=== PATIENT | male | born 1990 | race Caucasian/White ===

== ENCOUNTER → 2016-09-11 | Outpatient (CLI) | payer OTHER ==
--- NOTE | 2016-09-12 10:19 | XR ---
Left foot HISTORY: Swelling and pain 3 views of the left foot COMPARISON STUDY: There is soft tissue swelling present. Bone mineralization, joint spaces and alignment are maintained . No fracture or dislocation evident. IMPRESSION: Soft tissue swelling
== END ==
LOC: RADXRYALE 13:45
PROVIDERS: ATTEND Internal Medicine
DX: M79.89 Other specified soft tissue disorders (principal)

== ENCOUNTER 2024-02-04 17:41 | Inpatient (IN) | payer MEDICAID, OTHER ==
--- NOTE | 2024-02-04 18:10 | ED ---
Psych HPI - General Source: patient, RN notes reviewed Mode of arrival: ambulatory <Lashae Ferguson - Last Filed: 02/04/24 18:08> - General Source: patient, RN notes reviewed Mode of arrival: ambulatory Limitations: no limitations <Archie Brown - Last Filed: 02/05/24 08:20> - General Chief Complaint: Psychiatric Symptoms Stated Complaint: MENTAL HEALTH EVAL Time Seen by Provider: 02/04/24 18:09 - History of Present Illness Initial Comments: Quick note: 33-year-old male presented to the ER for mental health evaluation. Patient is complaining of SI with a plan. He states he planned on to take pills this evening. He denies any homicidal or hallucinations. No alcohol or other drugs. (Lashae Ferguson) Patient is a 33-year-old male presenting to the emergency department with concern for mental health evaluation. Patient states he has difficulty with relationship problems right now. Patient did have some depression and suicidal thoughts a month ago that were mild and resolved. Patient states symptoms worsened today. Decreased appetite today. Patient is not sleeping well however that is chronic. No homicidal thoughts. No hallucinations. No alcohol today. (Archie Brown) - Related Data Home Medications Medication Instructions Recorded Confirmed No Known Home Medications 02/05/24 02/05/24 Allergies Allergy/AdvReac Type Severity Reaction Status Date / Time No Known Allergies Allergy Verified 02/05/24 01:38 Review of Systems ROS Other: All systems not noted in ROS Statement are negative. <Lashae Ferguson - Last Filed: 02/04/24 18:08> ROS Other: All systems not noted in ROS Statement are negative. Constitutional: Denies: fever Eyes: Denies: eye pain ENT: Denies: ear pain Respiratory: Denies: cough, dyspnea Cardiovascular: Denies: chest pain Endocrine: Denies: fatigue Gastrointestinal: Denies: abdominal pain Neurological: Denies: headache Psychiatric: Reports: as per HPI, depression, suicidal thoughts <Archie Brown - Last Filed: 02/05/24 08:20> ROS Statement: Those systems with pertinent positive or pertinent negative responses have been documented in the HPI. Past Medical History Past Medical History: No Reported History History of Any Multi-Drug Resistant Organisms: None Reported Past Surgical History: No Surgical Hx Reported Past Psychological History: Depression Smoking Status: Never smoker Past Alcohol Use History: None Reported Past Drug Use History: None Reported <Lashae Ferguson - Last Filed: 02/04/24 18:08> General Exam Limitations: no limitations <Lashae Ferguson - Last Filed: 02/04/24 18:08> Limitations: no limitations General appearance: alert, in no apparent distress Head exam: Present: normocephalic Eye exam: Present: normal appearance Neck exam: Present: normal inspection Respiratory exam: Present: normal lung sounds bilaterally Cardiovascular Exam: Present: regular rate, normal rhythm GI/Abdominal exam: Present: soft. Absent: tenderness Extremities exam: Present: normal inspection Neurological exam: Present: alert Psychiatric exam: Present: depressed Skin exam: Present: normal color <Archie Brown - Last Filed: 02/05/24 08:20> - General Exam Comments Initial Comments: Visual Physical Exam Vital signs reviewed General: Well-appearing, nontoxic, no acute distress. Anxious and tearful on exam Head: Normocephalic, atraumatic Eyes: PERRLA, EOMI ENT: Airway patent Chest: Nonlabored breathing Skin: No visual rash, normal skin tone Neuro: Alert and oriented 3 Musculoskeletal: No gross abnormalities (Lashae Ferguson) Course Vital Signs 02/04/24 02/04/24 02/04/24 17:52 19:52 20:37 Temperature 98.8 F Pulse Rate 64 86 84 Respiratory 16 18 18 Rate Blood Pressure 179/128 166/116 176/133 O2 Sat by Pulse 98 99 Oximetry 02/04/24 02/04/24 21:55 22:19 Temperature Pulse Rate 80 105 H Respiratory 18 20 Rate Blood Pressure 163/108 153/112 O2 Sat by Pulse 100 100 Oximetry Medical Decision Making <Lashae Ferguson - Last Filed: 02/04/24 18:08> - Lab Data Result diagrams: 02/04/24 18:26 02/04/24 18:26 <Archie Brown - Last Filed: 02/05/24 08:20> - Medical Decision Making I performed the quick note portion of this chart. Electronically signed by Lashae Ferguson PA-C (Lashae Ferguson) Was pt. sent in by a medical professional or institution (PATRICIA Hyman, DIRECTOR OF HOUSING, urgent care, hospital, or detention...) When possible be specific @ -No Did you speak to anyone other than the patient for history (EMS, parent, family, police, friend...)? What history was obtained from this source @ -Patient is brought in by 2 other gentleman that agree with patient's history Did you review nursing and triage notes (agree or disagree)? Why? @ -I reviewed and agree with nursing and triage notes Were old charts reviewed (outside hosp., previous admission, EMS record, old EKG, old radiological studies, urgent care reports/EKG's, detention records)? Report findings @ -No old charts were reviewed Differential Diagnosis (chest pain, altered mental status, abdominal pain women, abdominal pain men, vaginal bleeding, weakness, fever, dyspnea, syncope, headache, dizziness, GI bleed, back pain, seizure, CVA, palpatations, mental health, musculoskeletal)? @ -Differential Mental Health Depression, anxiety, bipolar, psychosis, schizophrenia, borderline personality, situational depression, adjustment disorder, behavioral disorder, brain tumor, malingering, substance abuse, encephalopathy, medication reaction, dementia, hypothyroidism, degenerative neurologic disorder, lupus.... This is not meant to be all-inclusive list EKG interpreted by me (3pts min.). @ -As above X-rays interpreted by me (1pt min.). @ -None done CT interpreted by me (1pt min.). @ -None done U/S interpreted by me (1pt. min.). @ -None done What testing was considered but not performed or refused? (CT, X-rays, U/S, labs)? Why? @ -None What meds were considered but not given or refused? Why? @ -None Did you discuss the management of the patient with other professionals (professionals i.e. , PA, DIRECTOR OF HOUSING, lab, RT, psych nurse, social and human services assistant, embryology professor, teacher, armoured corps officer, senior case manager)? Give summary @ -Mental health worker to assess for possible admission versus follow-up Was smoking cessation discussed for >3mins.? @ -No Was critical care preformed (if so, how long)? @ -No Were there social determinants of health that impacted care today? How? (Homelessness, low income, unemployed, alcoholism, drug addiction, transportation, low edu. Level, literacy, decrease access to med. care, senior care, rehab)? @ -No Was there de-escalation of care discussed even if they declined (Discuss DNR or withdrawal of care, Hospice)? DNR status @ -No What co-morbidities impacted this encounter? (DM, HTN, Smoking, COPD, CAD, Ca ncer, CVA, ARF, Chemo, Hep., AIDS, mental health diagnosis, sleep apnea, morbid obesity)? @ -None Was patient admitted / discharged? Hospital course, mention meds given and route, prescriptions, significant lab abnormalities, going to OR and other pertinent info. @ -Patient presents with depression and some suicidal thoughts. Patient seen by mental health worker. Patient to be admitted for psychiatric care Undiagnosed new problem with uncertain prognosis? @ -No Drug Therapy requiring intensive monitoring for toxicity (Heparin, Nitro, Insulin, Cardizem)? @ -No Were any procedures done? @ -No Diagnosis/symptom? @ -Depression Acute, or Chronic, or Acute on Chronic? @ -Acute Uncomplicated (without systemic symptoms) or Complicated (systemic symptoms)? @ -Default Side effects of treatment? @ -No Exacerbation, Progression, or Severe Exacerbation? @ -No Poses a threat to life or bodily function? How? (Chest pain, USA, OR, pneumonia, PE, COPD, DKA, ARF, appy, cholecystitis, CVA, Diverticulitis, Homicidal, Suicidal, threat to staff... and all critical care pts) @ -No (Archie Brown) - Lab Data Lab Results 02/04/24 02/04/24 02/04/24 Range/Units 18:26 18:26 23:20 WBC 10.8 H (3.8-10.6) k/uL RBC 5.64 (4.30-5.90) m/uL Hgb 17.6 H (13.0-17.5) gm/dL Hct 52.8 (39.0-53.0) % MCV 93.6 (80.0-100.0) fL MCH 31.2 (25.0-35.0) pg MCHC 33.4 (31.0-37.0) g/dL RDW 13.2 (11.5-15.5) % Plt Count 389 (150-450) k/uL MPV 7.1 Neutrophils % 70 % Lymphocytes % 22 % Monocytes % 5 % Eosinophils % 1 % Basophils % 0 % Neutrophils # 7.6 (1.3-7.7) k/uL Lymphocytes # 2.4 (1.0-4.8) k/uL Monocytes # 0.5 (0-1.0) k/uL Eosinophils # 0.2 (0-0.7) k/uL Basophils # 0.0 (0-0.2) k/uL Sodium 139 (137-145) mmol/L Potassium 4.3 (3.5-5.1) mmol/L Chloride 103 (98-107) mmol/L Carbon Dioxide 24 (22-30) mmol/L Anion Gap 12 mmol/L BUN 19 (9-20) mg/dL Creatinine 1.60 H (0.66-1.25) mg/dL Est GFR (CKD-EPI)AfAm 65 (>60 ml/min/1.73 sqM) Est GFR (CKD-EPI)NonAf 56 (>60 ml/min/1.73 sqM) Glucose 97 (74-99) mg/dL Calcium 9.8 (8.4-10.2) mg/dL Total Bilirubin 1.6 H (0.2-1.3) mg/dL AST 40 (17-59) U/L ALT 41 (4-49) U/L Alkaline Phosphatase 67 (38-126) U/L Total Protein 8.9 H (6.3-8.2) g/dL Albumin 5.1 H (3.5-5.0) g/dL Urine Color Urine Appearance (Clear) Urine pH (5.0-8.0) Ur Specific [place] (1.001-1.035) Urine Protein (Negative) Urine Glucose (UA) (Negative) Urine Ketones (Negative) Urine Blood (Negative) Urine Nitrite (Negative) Urine Bilirubin (Negative) Urine Urobilinogen (<2.0) mg/dL Ur Leukocyte Esterase (Negative) Salicylates <1.0 mg/dL Urine Opiates Screen (NotDetected) Ur Oxycodone Screen (NotDetected) Urine Methadone Screen (NotDetected) Acetaminophen <10.0 ug/mL Ur Barbiturates Screen (NotDetected) U Tricyclic Antidepress (NotDetected) Ur Phencyclidine Scrn (NotDetected) Ur Amphetamines Screen (NotDetected) U Methamphetamines Scrn (NotDetected) U Benzodiazepines Scrn (NotDetected) Urine Cocaine Screen (NotDetected) U Marijuana (THC) Screen (NotDetected) Serum Alcohol <10 mg/dL SARS-CoV-2 (PCR) Not Detected (Not Detectd) 02/05/24 02/05/24 Range/Units 00:30 00:34 WBC (3.8-10.6) k/uL RBC (4.30-5.90) m/uL Hgb (13.0-17.5) gm/dL Hct (39.0-53.0) % MCV (80.0-100.0) fL MCH (25.0-35.0) pg MCHC (31.0-37.0) g/dL RDW (11.5-15.5) % Plt Count (150-450) k/uL MPV Neutrophils % % Lymphocytes % % Monocytes % % Eosinophils % % Basophils % % Neutrophils # (1.3-7.7) k/uL Lymphocytes # (1.0-4.8) k/uL Monocytes # (0-1.0) k/uL Eosinophils # (0-0.7) k/uL Basophils # (0-0.2) k/uL Sodium (137-145) mmol/L Potassium (3.5-5.1) mmol/L Chloride (98-107) mmol/L Carbon Dioxide (22-30) mmol/L Anion Gap mmol/L BUN (9-20) mg/dL Creatinine (0.66-1.25) mg/dL Est GFR (CKD-EPI)AfAm (>60 ml/min/1.73 sqM) Est GFR (CKD-EPI)NonAf (>60 ml/min/1.73 sqM) Glucose (74-99) mg/dL Calcium (8.4-10.2) mg/dL Total Bilirubin (0.2-1.3) mg/dL AST (17-59) U/L ALT (4-49) U/L Alkaline Phosphatase (38-126) U/L Total Protein (6.3-8.2) g/dL Albumin (3.5-5.0) g/dL Urine Color Light Yellow Urine Appearance Clear (Clear) Urine pH 5.5 (5.0-8.0) Ur Specific [place] 1.019 (1.001-1.035) Urine Protein Trace H (Negative) Urine Glucose (UA) Negative (Negative) Urine Ketones Negative (Negative) Urine Blood Negative (Negative) Urine Nitrite Negative (Negative) Urine Bilirubin Negative (Negative) Urine Urobilinogen <2.0 (<2.0) mg/dL Ur Leukocyte Esterase Negative (Negative) Salicylates mg/dL Urine Opiates Screen Not Detected (NotDetected) Ur Oxycodone Screen Not Detected (NotDetected) Urine Methadone Screen Not Detected (NotDetected) Acetaminophen ug/mL Ur Barbiturates Screen Not Detected (NotDetected) U Tricyclic Antidepress Not Detected (NotDetected) Ur Phencyclidine Scrn Not Detected (NotDetected) Ur Amphetamines Screen Not Detected (NotDetected) U Methamphetamines Scrn Not Detected (NotDetected) U Benzodiazepines Scrn Not Detected (NotDetected) Urine Cocaine Screen Not Detected (NotDetected) U Marijuana (THC) Screen Not Detected (NotDetected) Serum Alcohol mg/dL SARS-CoV-2 (PCR) (Not Detectd) Disposition <Lashae Ferguson - Last Filed: 02/04/24 18:08> Is patient prescribed a controlled substance at d/c from ED?: No <Archie Brown - Last Filed: 02/05/24 08:20> Clinical Impression: Depression Disposition: TRANSFER TO PSYCH HOSP/UNIT Condition: Good
[2024-02-04 18:39] LABS: Basophils % (A) 0 %; Eosinophils # (A) 0.2 k/uL (0-0.7); Eosinophils % (A) 1 %; HCT 52.8 % (39.0-53.0); HGB 17.6 gm/dL (13.0-17.5); Lymphocytes # (A) 2.4 k/uL (1.0-4.8); Lymphocytes % (A) 22 %; MCH 31.2 pg (25.0-35.0); MCHC 33.4 g/dL (31.0-37.0); MCV 93.6 fL (80.0-100.0); Mean Platelet Volume 7.1; Monocytes # (A) 0.5 k/uL (0-1.0); Monocytes % (A) 5 %; Neutrophils # (A) 7.6 k/uL (1.3-7.7); Neutrophils % (A) 70 %; Platelet Count 389 k/uL (150-450); RBC 5.64 m/uL (4.30-5.90); RDW 13.2 % (11.5-15.5); WBC 10.8 k/uL (3.8-10.6)
[2024-02-04 18:54] LABS: ALT 41 U/L (4-49); Acetaminophen <10.0 ug/mL; African American GFR (CKD) 65 (>60 ml/min/1.73 sqM); Albumin 5.1 g/dL (3.5-5.0); Alcohol <10 mg/dL; Anion Gap 12 mmol/L; Blood Urea Nitrogen 19 mg/dL (9-20); Calcium 9.8 mg/dL (8.4-10.2); Carbon Dioxide 24 mmol/L (22-30); Chloride 103 mmol/L (98-107); Glucose 97 mg/dL (74-99); Non-African American GFR(CKD) 56 (>60 ml/min/1.73 sqM); Salicylate <1.0 mg/dL; Sodium 139 mmol/L (137-145); Total Bilirubin 1.6 mg/dL (0.2-1.3); Total Protein 8.9 g/dL (6.3-8.2)
[2024-02-04 19:25] LABS: AST 40 U/L (17-59); Alkaline Phosphatase 67 U/L (38-126); Potassium 4.3 mmol/L (3.5-5.1)
[2024-02-04] MEDS: LORazepam 2 MG/ML INJ IM STA (20:05)
[2024-02-04] MEDS: hydrALAZINE HCL 20 MG/ML 1 ML VIAL IVP STA (20:54)
[2024-02-05] MEDS ORDERED: LORazepam 2 MG/ML INJ IM PRN (01:31)
[2024-02-05] MEDS ORDERED: MAG HYDROX/AL HYDROX/SIMETH 355 ML BOTTLE PO PRN (01:31)
[2024-02-05] MEDS ORDERED: MAGNESIUM HYDROXIDE 2,400 MG/30 ML CUP PO PRN (01:31)
[2024-02-05 01:33] LABS: Amphetamine Screen,Urine Not Detected (NotDetected); Barbiturate Screen,Urine Not Detected (NotDetected); Benzodiazepines Screen,Urine Not Detected (NotDetected); Cocaine Screen,Urine Not Detected (NotDetected); Methadone Screen, Urine Not Detected (NotDetected); Opiate Screen,Urine Not Detected (NotDetected); Oxycodone Screen, Urine Not Detected (NotDetected); Phencyclidine Screen,Urine Not Detected (NotDetected); Tricyclic Antidepressant,Urine Not Detected (NotDetected); Urn Cannabinoid Scrn Not Detected (NotDetected)
[2024-02-05] MEDS: IBUPROFEN 600 MG TAB PO PRN (02:46)
[2024-02-05] MEDS: ACETAMINOPHEN TAB 325 MG TAB PO PRN (02:46)
[2024-02-05 04:50] LABS: Appearance,Urine Clear (Clear); Bilirubin,Urine Negative (Negative); Blood,Urine Negative (Negative); Color,Urine Light Yellow; Glucose,Urine (UA) Negative (Negative); Ketones,Urine Negative (Negative); Leukocyte Esterase,Urine Negative (Negative); Nitrite,Urine Negative (Negative); PH, Urine 5.5 (5.0-8.0); Protein,Urine Trace (Negative); Specific Gravity,Urine 1.019 (1.001-1.035); Urobilinogen,Urine <2.0 mg/dL (<2.0)
[2024-02-05] MEDS: NICOTINE 14MG/24HR PATCH TRANSDERM SCH (09:33)
--- NOTE | 2024-02-05 11:55 | P.HP ---
Psychiatric H&P - . H&P Date: 02/05/24 History & Physical: Allergies Allergy/AdvReac Type Severity Reaction Status Date / Time No Known Allergies Allergy Verified 02/05/24 01:38 Vital Signs Temp 97.7 F 02/05/24 03:03 Pulse 86 02/05/24 03:03 Resp 15 02/05/24 03:03 BP 145/96 02/05/24 03:03 Pulse Ox 96 02/05/24 03:03 FiO2 Intake & Output 02/04/24 02/05/24 02/05/24 18:59 06:59 18:59 Weight 120.202 kg 122.47 kg Laboratory Last Values WBC 10.8 k/uL (3.8-10.6) H 02/04/24 18: RBC 5.64 m/uL (4.30-5.90) 02/04/24 18:26 Hgb 17.6 gm/dL (13.0-17.5) H 02/04/24 18:26 Hct 52.8 % (39.0-53.0) 02/04/24 18: MCV 93.6 fL (80.0-100.0) 02/04/24 18: MCH 31.2 pg (25.0-35.0) 02/04/24 18: MCHC 33.4 g/dL (31.0-37.0) 02/04/24 18: RDW 13.2 % (11.5-15.5) 02/04/24 18: Plt Count 389 k/uL (150-450) 02/04/24 18: MPV 7.1 02/04/24 18: Neutrophils % 70 % 02/04/24 18: Lymphocytes % 22 % 02/04/24 18: Monocytes % 5 % 02/04/24 18: Eosinophils % 1 % 02/04/24 18: Basophils % 0 % 02/04/24 18: Neutrophils # 7.6 k/uL (1.3-7.7) 02/04/24 18: Lymphocytes # 2.4 k/uL (1.0-4.8) 02/04/24 18: Monocytes # 0.5 k/uL (0-1.0) 02/04/24 18: Eosinophils # 0.2 k/uL (0-0.7) 02/04/24 18: Basophils # 0.0 k/uL (0-0.2) 02/04/24 18: Sodium 139 mmol/L (137-145) 02/04/24 18: Potassium 4.3 mmol/L (3.5-5.1) 02/04/24 18: Chloride 103 mmol/L (98-107) 02/04/24 18: Carbon Dioxide 24 mmol/L (22-30) 02/04/24 18: Anion Gap 12 mmol/L 02/04/24 18: BUN 19 mg/dL (9-20) 02/04/24 18: Creatinine 1.60 mg/dL (0.66-1.25) H 02/04/24 18:26 Est GFR (CKD-EPI)AfAm 65 (>60 ml/min/1.73 sqM) 02/04/24 18: Est GFR (CKD-EPI)NonAf 56 (>60 ml/min/1.73 sqM) 02/04/24 18: Glucose 97 mg/dL (74-99) 02/04/24 18: Calcium 9.8 mg/dL (8.4-10.2) 02/04/24 18: Total Bilirubin 1.6 mg/dL (0.2-1.3) H 02/04/24 18:26 AST 40 U/L (17-59) 02/04/24 18: ALT 41 U/L (4-49) 02/04/24 18: Alkaline Phosphatase 67 U/L (38-126) 02/04/24 18: Total Protein 8.9 g/dL (6.3-8.2) H 02/04/24 18: Albumin 5.1 g/dL (3.5-5.0) H 02/04/24 18:26 Urine Color Light Yellow 02/05/24 00:30 Urine Appearance Clear (Clear) 02/05/24 00:30 Urine pH 5.5 (5.0-8.0) 02/05/24 00:30 Ur Specific [place] 1.019 (1.001-1.035) 02/05/24 00:30 Urine Protein Trace (Negative) H 02/05/24 00:30 Urine Glucose (UA) Negative (Negative) 02/05/24 00:30 Urine Ketones Negative (Negative) 02/05/24 00:30 Urine Blood Negative (Negative) 02/05/24 00:30 Urine Nitrite Negative (Negative) 02/05/24 00:30 Urine Bilirubin Negative (Negative) 02/05/24 00:30 Urine Urobilinogen <2.0 mg/dL (<2.0) 02/05/24 00:30 Ur Leukocyte Esterase Negative (Negative) 02/05/24 00:30 Salicylates <1.0 mg/dL 02/04/24 18:26 Urine Opiates Screen Not Detected (NotDetected) 02/05/24 00:34 Ur Oxycodone Screen Not Detected (NotDetected) 02/05/24 00:34 Urine Methadone Screen Not Detected (NotDetected) 02/05/24 00:34 Acetaminophen <10.0 ug/mL 02/04/24 18:26 Ur Barbiturates Screen Not Detected (NotDetected) 02/05/24 00:34 U Tricyclic Antidepress Not Detected (NotDetected) 02/05/24 00:34 Ur Phencyclidine Scrn Not Detected (NotDetected) 02/05/24 00:34 Ur Amphetamines Screen Not Detected (NotDetected) 02/05/24 00:34 U Methamphetamines Scrn Not Detected (NotDetected) 02/05/24 00:34 U Benzodiazepines Scrn Not Detected (NotDetected) 02/05/24 00:34 Urine Cocaine Screen Not Detected (NotDetected) 02/05/24 00:34 U Marijuana (THC) Screen Not Detected (NotDetected) 02/05/24 00:34 Serum Alcohol <10 mg/dL 02/04/24 18:26 SARS-CoV-2 (PCR) Not Detected (Not Detectd) 02/04/24 23:20 02/05/24 11:47 IDENTIFYING DATA: Patient is a 33-year-old single male, on disability with 5 children CHIEF COMPLAINT: Suicidal thoughts with a plan HPI: Patient presented to the hospital with suicidal thoughts with a plan. EPS evaluation revealed, "pt presents with tearful affect and crying intermittently throughout assessment. pt states, "I wanted to end my life." pt reports that he has been struggling with depression for some time, but that he began having SI today. pt states that he has plan to overdose and that he had intended to act on these thoughts tonight. pt states that he had contacted his friends from the spiritism and they had come to see him before his girlfriend got home. pt states that he has attempted suicide in the past by overdose in 2019. pt denies HI and hallucinations. pt reports that he has had no motivation for the past 3 days and has struggled to get out of bed. pt's friends state that pt was "having a really bad day yesterday," but that today is significantly worse. pt also reports that he has been getting poor sleep for the past 2 weeks. pt states that he has been getting an average of 3 - 4 hours of broken sleep per night. pt denies change in appetite. No delusional thoughts verbalized. pt cooperative with assessment." Patient seen and evaluated on the unit and was agreeable to speak to tech writer in office. He states having issues with his long-term partner of 13 years and that this was what ultimately led to negative thoughts that then lead to suicidal thoughts. He states they have been having issues with his stubbornness and attitude and that he had attempted to call her yesterday however she would not garbage pick up man. He then called his winch stripper who called 911. Patient is very tearful during the encounter however wishes to be discharged today. The voluntary and involuntary process was described fully to the patient and he was agreeable with treatment and ultimately signed a voluntary form. He wishes to work on things at home with his partner however she requested some space. He reports chronic issues with sleep along with issues with low energy and hopelessness but denied any anhedonia, appetite changes or concentration issues. He denies any history of omer. Patient denies any suicidal or homicidal ideations intent or plan. At this time patient denies any auditory or visual hallucinations. Patient denies any flight of ideas racing thoughts and increased in goal directed behavior. Patient admits to using chewing tobacco. PAST PSYCHIATRIC HISTORY: Patient has a history of depression. Patient denies being on any psychiatric medications. He has tried Zoloft in the past. Patient denies any previous psychiatric hospitalizations. Patient denies any psychiatric outpatient follow-up. Patient denies any history of suicide attempts in the past. PMH: as per ER note ALLERGIES: as per EMR SUBSTANCE USE HISTORY: He reports chewing 1 can of tobacco per day FAMILY PSYCHIATRIC/SUBSTANCE USE HISTORY: He reports bipolar disorder in his grandparents SOCIAL HISTORY: Patient lives with his girlfriend of 13 years and their 5 children. He is on disability. MENTAL STATUS EXAM: General Appearance: Patient appears to be stated age is alert, directable, and attempts to cooperate. Patient appears to have fair hygiene and grooming. Behavior: Patient is seated without any agitated behavior. Patient is very tearful during interview Speech: Patient's speech is fluent and nonpressured. Mood/Affect: Patient reports their mood is depressed, affect is congruent and constricted. Suicidality/Homicidality: Patient denies having any homicidal ideation intent or plan. Denies any suicidal ideations intent or plan Perceptions: Patient denies any visual hallucinations and denies any auditory hallucinations Though content/process: There is no evidence of any delusional thought content and thought process is linear and goal-directed. Memory and concentration: AOX3, grossly intact for the purposes of this session. Can spell "WORLD" backwards Judgment and insight: Poor STRENGTHS/WEAKNESSES: strength is that patient is resilient. Weakness is that patient has poor judgment and is impulsive INTELLECT: Below average IMPRESSIONS: Depression, unspecified Intellectual disability Nicotine dependence PLAN: -Patient is admitted under voluntary status to MHU for stabilization of psychiatric symptoms and safety. Patient has signed adult voluntary form and medication consent and is placed in patient's chart. -Medications : Start Wellbutrin XL 150 mg daily for depression -Ativan and Haldol PRN for agitation/aggression -Patient was informed of the risks, benefits and side effects of the medication and patient verbally consented to taking the medications. Patient signed med consent form and was placed in chart. -Internal Medicine consult to perform medical evaluation and physical. -NRT -nicotine patch -SW on board for discharge planning. Encourage patient to participate in groups to work on coping skills. Anticipate discharge home with girlfriend towards the end of the week
[2024-02-05] MEDS: buPROPion XL 150 MG TAB.ER.24H PO SCH (13:12)
--- NOTE | 2024-02-05 16:55 | P.CONS ---
History of Present Illness - Reason for Consult Consult date: 02/05/24 Medical management Requesting physician: Domi Brown - Chief Complaint Suicidal ideation - History of Present Illness 33-year-old patient who follows with JOSE ELIAS Durant. Patient presented with after having suicidal ideations. Patient been having trouble sleeping for quite some time. Just felt overwhelmed. Patient is out of high school has been on Social Security. Lives with his ex girlfriend and 2 children. Does chew tobacco. Denies any fever and chills. Appetite is good. No change in bowel pattern. Patient blood pressure is running a bit high when he first presented. But he was also very anxious then Review of systems: GEN.: Tired EYES: None HEENT: None NECK: None RESPIRATORY: None CARDIOVASCULAR: None GASTROINTESTINAL: None GENITOURINARY: None MUSCULOSKELETAL: None LYMPHATICS: None HEMATOLOGICAL: None PSYCHIATRY: Some anxiety depression e NEUROLOGICAL: None Social history: Patient on exercise after high school. Lives with ex-girlfriend and 2 children. Just to tobacco. Denies use of recreational drugs Physical examination: VITAL SIGNS: 97.7, 86, 15, 145 x 96, 96% room air GENERAL: BMI 39.9, sitting in chair awake slightly anxious. EYES: Pupils equal. Conjunctiva henry l. HEENT: External appearance of nose and ears normal, oral cavity grossly normal. NECK: JVD not raised; masses not palpable. HEART: First and second heart sounds are normal; no edema. LUNGS: Respiratory rate normal; clear to auscultation. ABDOMEN: Soft, nontender, liver spleen not palpable, no masses palpable. PSYCH: Alert and oriented x3; mood and affect n but anxious l. MUSCULOSKELETAL:No Clubbing/cyanosis;muscles-grossly intact NEUROLOGICAL: Cranial nerves grossly intact; no facial asymmetry, power and sensation grossly intact. LYMPHATICS: No lymph nodes palpable in the axilla and neck INVESTIGATIONS, reviewed in the clinical context: White count 10.8 hemoglobin 7.6 platelets 389 sodium 139 potassium 4.3 creatinine 1.60 total bilirubin 1.6 Urine protein trace Urine drug screen: Negative. Also negative for salicylates, acetaminophen, serum alcohol Assessment plan: -Depression unspecified Being followed by psychiatry. Started on Wellbutrin XL 150 mg. As needed Ativan and Haldol. -Chronic nicotine dependence in the form of chewing tobacco Nicotine patch -Chronic insomnia for several years Hopefully patient will do better with Wellbutrin XL. Also has trazodone as needed for insomnia -Hypertension associated with some kidney dysfunction Clonidine 0.1 mg twice daily -Abnormal creatinine 1.6. Possibly chronic kidney disease stage II Renal ultrasound. Patient does have protein 1+ in the urine. Consult nephrology Thank you Dr. Brown Past Medical History Past Medical History: No Reported History History of Any Multi-Drug Resistant Organisms: None Reported Past Surgical History: No Surgical Hx Reported Past Anesthesia/Blood Transfusion Reactions: No Reported Reaction Past Psychological History: Depression Smoking Status: Current every day smoker Past Alcohol Use History: None Reported Past Drug Use History: None Reported Medications and Allergies Home Medications Medication Instructions Recorded Confirmed Type No Known Home Medications 02/05/24 02/05/24 History Allergies Allergy/AdvReac Type Severity Reaction Status Date / Time No Known Allergies Allergy Verified 02/05/24 01:38 Physical Exam Vitals: Vital Signs Temp Pulse Pulse Resp BP BP Pulse Ox 02/05/24 03:03 97.7 F 86 15 145/96 96 02/05/24 02:15 84 18 134/90 99 02/04/24 22:19 105 H 20 153/112 100 02/04/24 21:55 80 18 163/108 100 02/04/24 20:37 84 18 176/133 02/04/24 19:52 86 18 166/116 99 02/04/24 17:52 98.8 F 64 16 179/128 98 Intake and Output 02/05/24 02/05/24 02/05/24 06:59 14:59 22:59 Other: Weight 122.47 kg Results CBC & Chem 7: 02/04/24 18:26 02/04/24 18:26 Labs: Abnormal Lab Results - Last 24 Hours (Table) 02/04/24 02/04/24 02/05/24 Range/Units 18:26 18:26 00:30 WBC 10.8 H (3.8-10.6) k/uL Hgb 17.6 H (13.0-17.5) gm/dL Creatinine 1.60 H (0.66-1.25) mg/dL Total Bilirubin 1.6 H (0.2-1.3) mg/dL Total Protein 8.9 H (6.3-8.2) g/dL Albumin 5.1 H (3.5-5.0) g/dL Urine Protein Trace H (Negative)
[2024-02-05] MEDS: LORazepam 1 MG TAB PO PRN (22:15)
[2024-02-05] MEDS: traZODone HCL 50 MG TAB PO PRN (22:15)
[2024-02-06] MEDS: cloNIDine HCL 0.1 MG TAB PO SCH (09:33)
--- NOTE | 2024-02-06 11:23 | P.NPCON ---
History of Present Illness - Reason for Consult acute renal failure - History of Present Illness Reason for consultation: Acute kidney injury History of present illness: Patient is a 33-year-old male seen in renal consultation for acute kidney injury versus chronic kidney disease. Creatinine was 1.6 dated February 04, 2024. No prior records available. Patient denies personal history of kidney disease. Patient came to the hospital due to suicidal ideations. Patient states he is just been overwhelmed with life for all. Currently he feels better and is admitted in the inpatient psych unit. He denies regular use of nonsteroidals. Denies history of diabetes. Denies family history of renal disease. Denies vomiting or diarrhea. Oral intake has been fair. Denies edema. I do not see any antihypertensives in the home medication list. Blood pressures have been running on the higher side this admission. Catapres was added by primary team this admission. Vital signs are stable. General: No acute distress. HEENT: Head exam is unremarkable. LUNGS: No audible rhonchi or wheezes. HEART: Rate and Rhythm are regular. ABDOMEN: Nontender. EXTREMITITES: No edema. Past Medical History Past Medical History: No Reported History History of Any Multi-Drug Resistant Organisms: None Reported Past Surgical History: No Surgical Hx Reported Past Anesthesia/Blood Transfusion Reactions: No Reported Reaction Past Psychological History: Depression Smoking Status: Current every day smoker Past Alcohol Use History: None Reported Past Drug Use History: None Reported Medications and Allergies Home Medications Medication Instructions Recorded Confirmed Type No Known Home Medications 02/05/24 02/05/24 History Allergies Allergy/AdvReac Type Severity Reaction Status Date / Time No Known Allergies Allergy Verified 02/05/24 01:38 Results - Lab Results Most recent lab results Calcium 9.8 mg/dL (8.4-10.2) 02/04/24 18:26 02/04/24 18:26 02/04/24 18:26 Assessment and Plan Plan: Assessment: 1. Acute kidney injury versus chronic kidney disease. Creatinine 1.6 dated February 04, 2024. UA fairly benign. Albumin 5.1. 2. Benign hypertension. 3. Suicidal ideation. Psychiatry managing. Plan: Repeat UA. Quantify proteinuria. Repeat labs in the morning. Encouraged oral intake. Avoid nephrotoxins. Add amlodipine 5 mg once daily. Follow-up outpatient 1 week postdischarge. Thank you for the consultation. I will continue to follow the patient with you during his hospital stay.
[2024-02-06 11:59] LABS: ALT 32 U/L (4-49); AST 28 U/L (17-59); Albumin 4.4 g/dL (3.5-5.0); Alkaline Phosphatase 60 U/L (38-126); Bilirubin, Delta 0.1 mg/dL (0.0-0.2); Total Bilirubin 1.1 mg/dL (0.2-1.3); Total Protein 7.4 g/dL (6.3-8.2)
[2024-02-06] MEDS: amLODIPine 5 MG TAB PO SCH (12:19)
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
[2024-02-06] MEDS: DIVALPROEX 250 MG TABLET.DR PO SCH (13:26)
[2024-02-06 15:32] LABS: Chol/HDL Ratio 6.32 Ratio; LDL Cholesterol,Calculated 111.5 mg/dL (0.0-131.0)
--- NOTE | 2024-02-06 15:33 | P.PN ---
Progress Note - Text Progress Note Date: 02/06/24 - Chief Complaint Suicidal ideation - History of Present Illness 33-year-old patient who follows with [facility] . Patient presented with after having suicidal ideations. Patient been having trouble sleeping for quite some time. Just felt overwhelmed. Patient is out of high school has been on Social Security. Lives with his ex girlfriend and 2 children. Does chew tobacco. Denies any fever and chills. Appetite is good. No change in bowel pattern. Patient blood pressure is running a bit high when he first presented. But he was also very anxious then February 05: Patient feeling better. Started on clonidine. Seen by nephrology. Dr. Garcia see the patient as outpatient. Tolerating diet. Ambulating. TSH high. Started on Synthroid. Patient does inform me that he had kidney stones. He also takes medications for gout as needed. Will have the patient follow-up outpatient with urology Active Medications Acetaminophen (Acetaminophen Tab 325 Mg Tab) 650 mg PO Q4HR PRN PRN Reason: Mild Pain (Scale 1 to 3) Last Admin: 02/05/24 02:46 Dose: 650 mg Al Hydroxide/Mg Hydroxide (Mag Hydrox/Al Hydrox/Simeth 355 Ml Bottle) 30 ml PO Q4HR PRN PRN Reason: GI Upset Amlodipine Besylate (Amlodipine 5 Mg Tab) 5 mg PO DAILY [facility] Last Admin: 02/06/24 12:19 Dose: 5 mg Bupropion HCl (Bupropion Xl 150 Mg Tab.Er.24h) 150 mg PO DAILY [facility] Last Admin: 02/06/24 09:32 Dose: 150 mg Clonidine (Clonidine Hcl 0.1 Mg Tab) 0.1 mg PO BID [facility] Last Admin: 02/06/24 09:33 Dose: 0.1 mg Divalproex Sodium (Divalproex 250 Mg Tablet.Dr) 250 mg PO BID [facility] Last Admin: 02/06/24 13:26 Dose: 250 mg Lorazepam (Lorazepam 1 Mg Tab) 1 mg PO Q6HR PRN PRN Reason: Anxiety Last Admin: 02/05/24 22:15 Dose: 1 mg Lorazepam (Lorazepam 2 Mg/Ml Inj) 1 mg IM Q6HR PRN PRN Reason: Severe Agitation Magnesium Hydroxide (Magnesium Hydroxide 2,400 Mg/30 Ml Cup) 2,400 mg PO DAILY PRN PRN Reason: Constipation Nicotine (Nicotine 14mg/24hr Patch) 1 patch TRANSDERM DAILY [facility] Last Admin: 02/06/24 09:31 Dose: 1 patch Trazodone HCl (Trazodone Hcl 50 Mg Tab) 50 mg PO HS PRN PRN Reason: Insomnia Last Admin: 02/05/24 22:15 Dose: 50 mg Social history: Patient on exercise after high school. Lives with ex-girlfriend and 2 children. Just to tobacco. Denies use of recreational drugs Physical examination: VITAL SIGNS: 97.7, 76, 16, 148 x 98, 96% room air GENERAL: BMI 39.9, s sitting up, comfortable EYES: Pupils equal. Conjunctiva henry l. HEENT: External appearance of nose and ears normal, oral cavity grossly normal. NECK: JVD not raised; masses not palpable. HEART: First and second heart sounds are normal; no edema. LUNGS: Respiratory rate normal; clear to auscultation. ABDOMEN: Soft, nontender, liver spleen not palpable, no masses palpable. PSYCH: Alert and oriented x3; mood and affect n but anxious l. INVESTIGATIONS, reviewed in the clinical context: TSH 44.2 White count 10.8 hemoglobin 7.6 platelets 389 sodium 139 potassium 4.3 creatinine 1.60 total bilirubin 1.6 Urine protein trace Urine drug screen: Negative. Also negative for salicylates, acetaminophen, serum alcohol Assessment plan: -Depression unspecified Being followed by psychiatry. Started on Wellbutrin XL 150 mg. As needed Ativan and Haldol. -Chronic nicotine dependence in the form of chewing tobacco Nicotine patch -Chronic insomnia for several years Hopefully patient will do better with Wellbutrin XL. Also has trazodone as needed for insomnia -Hypertension associated with some kidney dysfunction Clonidine 0.1 mg twice daily -Nephrolithiasis, currently asymptomatic Have patient follow-up outpatient with Dr. Ingram -Abnormal creatinine 1.6. Possibly chronic kidney disease stage II Renal ultrasound. Patient does have protein 1+ in the urine. Seen by Dr. Garcia. He will follow-up outpatient. -Hypothyroid Start Synthroid 100 mcg a day. Repeat TSH 4 weeks-with PCP Thank you Dr. Brown Past Medical History Past Medical History: No Reported History History of Any Multi-Drug Resistant Organisms: None Reported Past Surgical History: No Surgical Hx Reported Past Anesthesia/Blood Transfusion Reactions: No Reported Reaction Past Psychological History: Depression Smoking Status: Current every day smoker Past Alcohol Use History: None Reported Past Drug Use History: None Reported
[2024-02-07] MEDS: LEVOTHYROXINE 100 MCG TAB PO SCH (06:35)
[2024-02-07 09:35] LABS: African American GFR (CKD) 62 (>60 ml/min/1.73 sqM); Anion Gap 9 mmol/L; Blood Urea Nitrogen 17 mg/dL (9-20); Calcium 9.3 mg/dL (8.4-10.2); Carbon Dioxide 27 mmol/L (22-30); Chloride 103 mmol/L (98-107); Glucose 100 mg/dL (74-99); Non-African American GFR(CKD) 54 (>60 ml/min/1.73 sqM); Sodium 139 mmol/L (137-145)
[2024-02-07 09:40] LABS: Potassium 4.3 mmol/L (3.5-5.1)
[2024-02-07] MEDS: buPROPion XL 150 MG TAB.ER.24H PO ONE (09:56)
--- NOTE | 2024-02-07 10:47 | P.PN ---
Progress Note - Text Progress Note Date: 02/07/24 Interval History: Patient was seen in group and was directable and agreeable to speak with medical technical writer in the office. Patient states feeling "better" and that he is excited about his upcoming discharge so that he can return home with his kids. He states his girlfriend does not want him to return home with her and she wants him to just grab his things and stay elsewhere. Patient states he has several contacts that he can contact to stay with however he was hopeful that things would be better with his girlfriend. He states feeling more calm today and "more mellow". He reports good sleep and appetite. When asked for 2 reasons to live, he gives 3 stating his family, his children and God. At this time patient denies any suicidal or homicidal ideations, intent or plan. Patient denies any auditory, visual hallucinations and denies any paranoia or delusions. Patient denies any side effects from the medications and has been compliant with meds. Mental Status Exam: General Appearance: Patient appears to be stated age is alert, directable, and cooperative. He is wearing an ice cube t-shirt and pajama pants Behavior: Patient is calmly seated without any agitated behavior. Less tearful Speech: Patient's speech is fluent and nonpressured. Mood/Affect: Mood is improving mildly, affect is congruent and blunted but more reactive. Suicidality/Homicidality: Patient denies having any suicidal or homicidal ideation intent or plan. Perceptions: Patient denies any visual hallucinations and denies any auditory hallucinations Though content/process: There is no evidence of any delusional thought content and thought process is linear and goal-directed. Memory and concentration: AOX3, grossly intact for the purposes of this session Judgment and insight: Improving mildly Assessment Depression, unspecified Intellectual disability Nicotine dependence Plan: -Patient continues to meet criteria for inpatient psychiatric admission for symptom stabilization and safety. Patient has signed adult voluntary form and medication consent and was placed in patient's chart. -Medications: Increase Wellbutrin XL to 300 mg daily for depression, continue Depakote 250 mg twice daily for mood stabilization -When necessary Ativan and Haldol for agitation/aggression. -Labs: TSH elevated, patient started on Synthroid from [facility], ultrasound for the kidneys ordered today given elevated creatinine -NRT -nicotine patch -SW on board for discharge planning. Encouraged the patient to participate in milieu. Anticipate discharge home tomorrow, girlfriend confirmed no firearms at the home
--- NOTE | 2024-02-07 11:00 | US ---
EXAMINATION TYPE: US kidneys/renal and bladder DATE OF EXAM: 02/07/2024 COMPARISON: NONE CLINICAL INDICATION: Male, 33 years old with history of increased creatinine; Increased creatinine. H x of kidney stones. TECHNIQUE: Grayscale imaging of the bilateral kidneys and urinary bladder: FINDINGS: EXAM MEASUREMENTS: Right Kidney: 12.8 x 6.4 x 6.2 cm Left Kidney: 13.7 x 5.3 x 5.5 cm Exam is limited due to gas. Right Kidney: Slightly enlarged. *2 hyperechoic foci seen, larger is at the upper pole = 0.5 x 0.4 x 0.4 cm. Left Kidney: Enlarged. Renal pelvis appears dilated. -Anechoic area seen lower pole = 1.1 x 1.0 x 1.1 cm. -Anechoic area seen at mid= 1.1 x 1.1 x 1.1 cm. *Multiple hyperechoic foci seen, largest appears to be at the upper pole = 0.7 x 0.5 x 0.5 cm. Bladder: Appears wnl Bilateral Jets seen: No IMPRESSION: 1. No evidence for obstructive uropathy. 2. Nonobstructing bilateral renal calculi. 3. Left renal cortical cyst. [facility], , 02/07/2024 10:58 AM
[2024-02-07 14:14] LABS: Appearance,Urine Cloudy (Clear); Bilirubin,Urine Negative (Negative); Blood,Urine Negative (Negative); Color,Urine Yellow; Glucose,Urine (UA) Negative (Negative); Ketones,Urine Trace (Negative); Leukocyte Esterase,Urine Negative (Negative); Mucus,Urine Many /hpf; Nitrite,Urine Negative (Negative); Protein,Urine 2+ (Negative); Specific Gravity,Urine 1.018 (1.001-1.035); Urobilinogen,Urine <2.0 mg/dL (<2.0); WBC,Urine 1 /hpf (0-5)
[2024-02-07 14:16] LABS: Squamous Epithelial Cell,Urine 1 /hpf (0-4)
[2024-02-07] MEDS: NICOTINE GUM (POLACRILEX) 2 MG GUM BUCCAL PRN (15:34)
[2024-02-07 16:14] LABS: Creatinine,Urine Random 265.9 mg/dL
[2024-02-07 16:45] LABS: Protein/Creatinine Ratio,Urine 1.621
[2024-02-08 06:45] VITALS: BP 128/64; PULSE 69; RESP 14; TEMP 98
[2024-02-08] MEDS: buPROPion XL 300 MG TAB.ER.24H PO SCH (08:07)
--- NOTE | 2024-02-08 10:33 | P.PN ---
Subjective Patient is seen in follow-up for acute kidney injury versus chronic kidney disease. Creatinine stable at 1.65 this admission. Patient has no active complaints. Has been voiding. Vital signs are stable. General: No acute distress. HEENT: Head exam is unremarkable. LUNGS: No audible rhonchi or wheezes. HEART: Rate and Rhythm are regular. ABDOMEN: Nontender. EXTREMITITES: No edema. Objective - Vital Signs Vital signs: Vital Signs Temp 98.0 F 02/08/24 06:44 Pulse 69 02/08/24 06:44 Resp 14 02/08/24 06:44 BP 128/64 02/08/24 06:44 Pulse Ox 97 02/08/24 06:44 FiO2 - Labs CBC & Chem 7: 02/04/24 18:26 02/07/24 09:03 Labs: Abnormal Lab Results - Last 24 Hours (Table) 02/07/24 Range/Units 13:37 Urine Protein 2+ H (Negative) Urine Ketones Trace H (Negative) Urine Mucus Many H (None) /hpf Assessment and Plan Plan: Assessment: 1. Acute kidney injury versus chronic kidney disease. Creatinine 1.6 dated February 04, 2024. Repeat 1.65 yesterday. Initial UA fairly benign. Albumin 5.1. Repeat UA with 2+ protein. UPC 1.6 g. 2. Benign hypertension. Controlled. 3. Suicidal ideation. Psychiatry managing. 4. Nephrolithiasis. Patient states he has passed multiple stones in the past. Ultrasound from this admission showed no hydronephrosis. Bilateral stones were noted. Plan: Stop amlodipine. Add losartan 50 mg once daily. Encouraged oral intake. Avoid nephrotoxins. Follow-up outpatient 1 week postdischarge. Further workup for proteinuria outpatient, including potential kidney biopsy. Further workup for kidney stones outpatient as well. Advised patient to maintain adequate hydration to maintain urine output of at least 2 L/day. Repeat BMP and magnesium level 2 to 3 days postdischarge.
--- NOTE | 2024-02-08 13:22 | P.DS ---
Providers Date of admission: 02/05/24 01:28 Expected date of discharge: 02/08/24 Attending physician: Domi Brown MD Consults: 02/05/24 01:31 Consult Physician Routine Consulting Provider: Raymundo Cowan Consult Reason/Comments: For H & P for Medical Follow Up Do you want consulting provider notified?: Yes, Notify in am 02/06/24 16:26 Consult Physician Routine Consulting Provider: Last Garcia Consult Reason/Comments: increased Creatinine Do you want consulting provider notified?: Yes Primary care physician: Oscar Pulliam - Discharge Diagnosis(es) (1) Depression Status: Acute Priority: High (2) Nicotine dependence Status: Chronic Priority: Low (3) Intellectual disability Status: Chronic Priority: Low Hospital Course: Admission HPI: Admission note was completed by typewriter operator automatic "Patient presented to the hospital with suicidal thoughts with a plan. EPS evaluation revealed, "pt presents with tearful affect and crying intermittently throughout assessment. pt states, "I wanted to end my life." pt reports that he has been struggling with depression for some time, but that he began having SI today. pt states that he has plan to overdose and that he had intended to act on these thoughts tonight. pt states that he had contacted his friends from the [employer] and they had come to see him before his girlfriend got home. pt states that he has attempted suicide in the past by overdose in 2019. pt denies HI and hallucinations. pt reports that he has had no motivation for the past 3 days and has struggled to get out of bed. pt's friends state that pt was "having a really bad day yesterday," but that today is significantly worse. pt also reports that he has been getting poor sleep for the past 2 weeks. pt states that he has been getting an average of 3 - 4 hours of broken sleep per night. pt denies change in appetite. No delusional thoughts verbalized. pt cooperative with assessment." Patient seen and evaluated on the unit and was agreeable to speak to typewriter operator automatic in office. He states having issues with his long-term partner of 13 years and that this was what ultimately led to negative thoughts that then lead to suicidal thoughts. He states they have been having issues with his stubbornness and attitude and that he had attempted to call her yesterday however she would not picking table worker. He then called his bag maker who called 911. Patient is very tearful during the encounter however wishes to be discharged today. The voluntary and involuntary process was described fully to the patient and he was agreeable with treatment and ultimately signed a voluntary form. He wishes to work on things at home with his partner however she requested some space. He reports chronic issues with sleep along with issues with low energy and hopelessness but denied any anhedonia, appetite changes or concentration issues. He denies any history of omer. Patient denies any suicidal or homicidal ideations intent or plan. At this time patient denies any auditory or visual hallucinations. Patient denies any flight of ideas racing thoughts and increased in goal directed behavior. Patient admits to using chewing tobacco." Hospital course: Upon admission to the unit patient was directable and agreeable to commence treatment and signed adult voluntary form.. Patient got along well with other patients on the unit and followed unit protocol. Patient notably was extremely tearful and guarded initially however was more open and bright in affect towards the end of his stay. Patient was compliant with the medications and denied any side effects throughout hospital course. Patient was started on Wellbutrin XL and this was increased to 300 mg daily for depression, Depakote 250 mg twice daily for mood stabilization. Patient spoke of his stressors and engaged in therapy both group and individual. Patient was also seen by medical team for history and physical exam. Patient's creatinine was elevated at 1.6 and nephrology was consulted who ordered an ultrasound which showed nonobstructing renal calculi and cyst. Patient was started on amlodipine and clonidine for blood pressure. He will follow-up with nephrology in 1 week outpatient. Th out the course of the hospitalization patient gradually improved with regards to mood, anxiety, sleep and became more future oriented with improved insight and judgment. On the day of discharge patient denied any suicidal or homicidal ideations intent or plan denied any auditory or visual hallucinations. The patient denied any access to guns or weapons. Patient denied any paranoia and did not endorse any delusions. Patient does have a significant history of substance abuse and was counseled on abstaining from all substances including alcohol and marijuana. Patient was also counseled on the medications and need for regular compliance and was encouraged to follow-up with their outpatient appointment for mental health and also for primary care. Prior to discharge a family meeting will be arranged by social scientist to answer any questions and ensure safety upon discharge incuding making sure that guns/weapons are either removed from the home or locked away. Patient to return home with his cousin with [facility] counseling follow-up outpatient. Mental status exam: General Appearance: Patient appears to be stated age is alert, pleasant, and cooperative. Patient is in no acute distress and has improved hygiene and grooming. He has short dark hair Behavior: Patient is calmly seated without any agitated behavior. Speech: Patient's speech is fluent and nonpressured. Mood/Affect: Patient reports their mood is "better", affect is congruent and euthymic. Suicidality/Homicidality: Patient denies having any suicidal or homicidal ideation intent or plan. Perceptions: Patient denies any auditory or visual hallucinations. Though content/process: There is no evidence of any delusional thought content and thought process is linear and goal-directed. More future oriented Memory and concentration: AOX3, grossly intact for the purposes of this session. Can spell "WORLD" backwards correctly. Judgment and insight: Fair Impression: Depression, unspecified Intellectual disability Nicotine dependence Plan: -Continue with discharge today as patient has improved and stabilized psychiatrically and is not currently an imminent threat to themself and/or others. -Continue medications: Wellbutrin XL 300 mg daily, Depakote 250 mg twice daily -Patient was counseled on the need for medication compliance and appropriate follow-up at mental health and also primary care for medical issues. Patient verbalized understanding and agreed. -Social work to help coordinate patients discharge today. also to ensure safe home environment that guns/weapons are either removed from the home or locked away. Social work also to arrange for patients follow up appointments with [facility] counseling for psychiatric care along with follow up with primary care provider. -Patient counseled on abstaining from recreational drugs and marijuana and alcohol. Was informed/educated on the adverse effects on their physical and mental health. Patient verbally agreed and understood. -Patient was instructed to return to the hospital or seek immediate medical care if their psychiatric or medical symptoms do worsen or reoccur. Abnormal Labs 02/04/24 02/04/24 02/05/24 18:26 18:26 00:30 WBC 10.8 H Hgb 17.6 H Creatinine 1.60 H Glucose Total Bilirubin 1.6 H Total Protein 8.9 H Albumin 5.1 H Triglycerides HDL Cholesterol TSH Urine Protein Trace H Urine Ketones Urine Mucus 02/06/24 02/07/24 02/07/24 10:17 09:03 13:37 WBC Hgb Creatinine 1.65 H Glucose 100 H Total Bilirubin Total Protein Albumin Triglycerides 179.00 H HDL Cholesterol 27.70 L TSH 44.200 H Urine Protein 2+ H Urine Ketones Trace H Urine Mucus Many H Vital Signs Temp 98.0 F 02/08/24 06:44 Pulse 69 02/08/24 06:44 Resp 14 02/08/24 06:44 BP 128/64 02/08/24 06:44 Pulse Ox 97 02/08/24 06:44 FiO2 Allergies Allergy/AdvReac Type Severity Reaction Status Date / Time No Known Allergies Allergy Verified 02/05/24 01:38 Patient Condition at Discharge: Stable Plan - Discharge Summary Discharge Rx Participant: Yes New Discharge Prescriptions: New Divalproex [Depakote] 250 mg PO BID 30 Days #60 tab Nicotine 14Mg/24Hr Patch [Habitrol] 1 patch TRANSDERM DAILY patch amLODIPine [Norvasc] 5 mg PO DAILY 30 Days #30 tab buPROPion XL [Wellbutrin XL] 300 mg PO DAILY 30 Days #30 tab cloNIDine HCL [Catapres] 0.1 mg PO BID 30 Days #60 tab traZODone HCL [Desyrel] 50 mg PO HS PRN 30 Days #30 tab PRN Reason: Insomnia Nicotine Gum (Polacrilex) [Nicorette] 2 mg BUCCAL Q4HR PRN pieceofgum PRN Reason: Nicotine Cravings Levothyroxine Sodium [Synthroid] 100 mcg PO DAILY@629 30 Days #30 tab Discharge Medication List Divalproex [Depakote] 250 mg PO BID 30 Days #60 tab 02/08/24 [Rx] Levothyroxine Sodium [Synthroid] 100 mcg PO DAILY@30 30 Days #30 tab 02/08/24 [Rx] Nicotine 14Mg/24Hr Patch [Habitrol] 1 patch TRANSDERM DAILY patch 02/08/24 [Rx] Nicotine Gum (Polacrilex) [Nicorette] 2 mg BUCCAL Q4HR PRN pieceofgum 02/08/24 [Rx] amLODIPine [Norvasc] 5 mg PO DAILY 30 Days #30 tab 02/08/24 [Rx] buPROPion XL [Wellbutrin XL] 300 mg PO DAILY 30 Days #30 tab 02/08/24 [Rx] cloNIDine HCL [Catapres] 0.1 mg PO BID 30 Days #60 tab 02/08/24 [Rx] traZODone HCL [Desyrel] 50 mg PO HS PRN 30 Days #30 tab 02/08/24 [Rx] Follow up Appointment(s)/Referral(s): [facility] [Outside] - 02/18/24 6:00 pm (02/17 @ 18:00 with [facility] Therapist out of office week of 02/09-02/15 ) Kimani Ingram MD [STAFF PHYSICIAN] - 1 Week (Kidney stones) sOcar Pulliam MD [Primary Care Provider] - 1 Week () Last Garcia DO [STAFF PHYSICIAN] - 1 Week Patient Instructions/Handouts: How to Stop Smoking (DC), Depression (DC) Activity/Diet/Wound Care/Special Instructions: Avoid the use of street drugs and alcohol. Take all medications as prescribed. When you are in need of refills on your medications, please contact your medical provider and/or outpatient psychiatrist/provider to have this done. Please go to your scheduled outpatient appointment for aftercare treatment. If symptoms return or become worse, call the crisis line at and/or go to the nearest emergency room for evaluation. National Suicide Hotline 732 Discharge Disposition: HOME SELF-CARE
[2024-02-09] MEDS ORDERED: LOSARTAN 50 MG TAB PO SCH (09:00)
== END 2024-02-08 12:55 | disposition home or self-care (01) | DRG 754 ==
LOC: EC 17:41 → 3MHU 02-05 01:28
PROVIDERS: ADMIT Psychiatry & Neurology Psychiatry; ATTEND Psychiatry & Neurology Psychiatry
DX: F32.A Depression, unspecified (principal); F41.9 Anxiety disorder, unspecified; F79 Unspecified intellectual disabilities; M10.9 Gout, unspecified; N17.9 Acute kidney failure, unspecified; F17.220 Nicotine dependence, chewing tobacco, uncomplicated; N18.2 Chronic kidney disease, stage 2 (mild); I12.9 Hypertensive chronic kidney disease with stage 1 through stage 4 chronic kidney disease, or unspecified chronic kidney disease; F51.04 Psychophysiologic insomnia; R45.851 Suicidal ideations; N20.0 Calculus of kidney; Z79.899 Other long term (current) drug therapy; Z91.51 Personal history of suicidal behavior; Z79.890 Hormone replacement therapy; Z71.6 Tobacco abuse counseling
CPT/HCPCS: 36415; 76770; 80048; 80053; 80061; 80076; 80143; 80179; 80306; 80320; 81001; 81003; 82075; 82570; 83036; 84156; 84443; 85025; 87635; 96372; 96374; 99285

== ENCOUNTER 2024-02-23 09:47 | Emergency (ER) | payer OTHER ==
[2024-02-23 10:05] VITALS: RESP 18
--- NOTE | 2024-02-23 10:59 | ED ---
General Adult HPI - General Chief complaint: Abdominal Pain Stated complaint: Left flank pain, inflammation Time Seen by Provider: 02/23/24 10:58 Source: patient, RN notes reviewed Mode of arrival: ambulatory Limitations: no limitations - History of Present Illness Initial comments: 33-year-old male presented to the ER for evaluation of left upper abdomen discomfort and rash. Patient states on , 02-21-2024 patient started to experience a burning/tingling sensation to his left upper quadrant. He states this morning he noticed a red rash appearing over area which prompted him to come to the ER for evaluation. Patient denies any fevers, chills, nausea, vomiting, constipation/diarrhea, urinary complaints. Denies history of kidney stones. He has not taken anything for pain at this time. No other complaints. - Related Data Previous Rx's Medication Instructions Recorded Divalproex [Depakote] 250 mg PO BID 30 Days #60 tab 02/08/24 Levothyroxine Sodium [Synthroid] 100 mcg PO DAILY@0630 30 Days #30 02/08/24 tab Nicotine 14Mg/24Hr Patch [Habitrol] 1 patch TRANSDERM DAILY patch 02/08/24 Nicotine Gum (Polacrilex) 2 mg BUCCAL Q4HR PRN pieceofgum 02/08/24 [Nicorette] amLODIPine [Norvasc] 5 mg PO DAILY 30 Days #30 tab 02/08/24 buPROPion XL [Wellbutrin XL] 300 mg PO DAILY 30 Days #30 tab 02/08/24 cloNIDine HCL [Catapres] 0.1 mg PO BID 30 Days #60 tab 02/08/24 traZODone HCL [Desyrel] 50 mg PO HS PRN 30 Days #30 tab 02/08/24 Acyclovir [Zovirax] 800 mg PO TID 7 Days #21 tab 02/23/24 Ibuprofen 600 mg PO Q8H #30 tab 02/23/24 Allergies Allergy/AdvReac Type Severity Reaction Status Date / Time No Known Allergies Allergy Verified 02/23/24 10:00 Review of Systems ROS Statement: Those systems with pertinent positive or pertinent negative responses have been documented in the HPI. ROS Other: All systems not noted in ROS Statement are negative. Past Medical History Past Medical History: Hypertension History of Any Multi-Drug Resistant Organisms: None Reported Past Surgical History: No Surgical Hx Reported Past Anesthesia/Blood Transfusion Reactions: No Reported Reaction Past Psychological History: Anxiety, Depression Smoking Status: Never smoker Past Alcohol Use History: None Reported Past Drug Use History: None Reported General Exam Limitations: no limitations General appearance: alert, in no apparent distress Respiratory exam: Present: normal lung sounds bilaterally. Absent: respiratory distress, wheezes, rales, rhonchi, stridor Cardiovascular Exam: Present: regular rate, normal rhythm, normal heart sounds. Absent: systolic murmur, diastolic murmur, rubs, gallop, clicks GI/Abdominal exam: Present: soft, normal bowel sounds, other (No CVA tenderness bilaterally). Absent: distended, tenderness, guarding, rebound, rigid Neurological exam: Present: alert, oriented X3, CN II-XII intact Skin exam: Present: warm, dry, intact, normal color, rash (Erythematous macular rash in a dermatomal pattern over left upper quadrant. No vesicles. ) Course Vital Signs 02/23/24 02/23/24 10:01 11:13 Temperature 98.3 F 98.0 F Pulse Rate 70 62 Respiratory 18 18 Rate Blood Pressure 131/79 143/105 O2 Sat by Pulse 99 Oximetry Medical Decision Making - Medical Decision Making Was pt. sent in by a medical professional or institution (, PA, [employer], urgent care, hospital, or [facility]...) When possible be specific @ -No Did you speak to anyone other than the patient for history (EMS, parent, family, police, friend...)? What history was obtained from this source @ -No Did you review nursing and triage notes (agree or disagree)? Why? @ -I reviewed and agree with nursing and triage notes Were old charts reviewed (outside hosp., previous admission, EMS record, old EKG, old radiological studies, urgent care reports/EKG's, [facility] records)? Report findings @ -No old charts were reviewed Differential Diagnosis (chest pain, altered mental status, abdominal pain women, abdominal pain men, vaginal bleeding, weakness, fever, dyspnea, syncope, headache, dizziness, GI bleed, back pain, seizure, CVA, palpatations, mental health, musculoskeletal)? @ -Differential Abdominal Pain Men:Appendicitis, cholecystitis, diverticulosis, ischemic bowel, pancreatitis, hepatitis, UTI, gastroenteritis, AAA, incarcerated hernia, bowel obstruction, constipation, inflammatory bowel, hepatitis, peptic ulcer disease, splenic infarction, perforated viscus, testicular torsion, this is not meant to be an all-inclusive list EKG interpreted by me (3pts min.). @ -None done X-rays interpreted by me (1pt min.). @ -None done CT interpreted by me (1pt min.). @ -None done U/S interpreted by me (1pt. min.). @ -None done What testing was considered but not performed or refused? (CT, X-rays, U/S, labs)? Why? @ -None What meds were considered but not given or refused? Why? @ -None Did you discuss the management of the patient with other professionals (professionals i.e. , PA, [employer], lab, RT, psych nurse, medical social worker, criminal lawyer, teacher, correction officer city or county jail, case managers)? Give summary @ -No Was smoking cessation discussed for >3mins.? @ -No Was critical care preformed (if so, how long)? @ -No Were there social determinants of health that impacted care today? How? (Homelessness, low income, unemployed, alcoholism, drug addiction, transportation, low edu. Level, literacy, decrease access to med. care, fci, rehab)? @ -No Was there de-escalation of care discussed even if they declined (Discuss DNR or withdrawal of care, Hospice)? DNR status @ -No What co-morbidities impacted this encounter? (DM, HTN, Smoking, COPD, CAD, Cancer, CVA, ARF, Chemo, Hep., AIDS, mental health diagnosis, sleep apnea, morbid obesity)? @ -None Was patient admitted / discharged? Hospital course, mention meds given and route, prescriptions, significant lab abnormalities, going to OR and other pertinent info. @ -Discharge. 33-year-old male presenting to the ER for evaluation of left upper quadrant discomfort and rash. Vitals stable. Exam remarkable for a left upper quadrant erythematous macular rash in a dermatomal pattern (T7) concerning of herpes zoster. Patient has no focal abdominal tenderness, rebound or guarding. No urinary complaints, nausea, vomiting or fevers. Rash believed to be early onset herpes zoster for which patient will be started on acyclovir. I advised [id number] ibuprofen and Tylenol for pain control. Instructed patient to follow-up closely with PCP in the next couple of days for recheck. Strict return parameters discussed. Patient discharged in stable condition with follow-up to PCP. Patient verbally expressed understanding and agreement with care plan. Case discussed with ED attending, Dr. Brown. Undiagnosed new problem with uncertain prognosis? @ -No Drug Therapy requiring intensive monitoring for toxicity (Heparin, Nitro, Insulin, Cardizem)? @ -No Were any procedures done? @ -No Diagnosis/symptom? @ -Herpes zoster Acute, or Chronic, or Acute on Chronic? @ -Acute Uncomplicated (without systemic symptoms) or Complicated (systemic symptoms)? @ -Uncomplicated Side effects of treatment? @ -No Exacerbation, Progression, or Severe Exacerbation? @ -No Poses a threat to life or bodily function? How? (Chest pain, USA, IA, pneumonia, PE, COPD, DKA, ARF, appy, cholecystitis, CVA, Diverticulitis, Homicidal, Suicidal, threat to staff... and all critical care pts) @ -No Disposition Clinical Impression: Herpes zoster Disposition: HOME SELF-CARE Condition: Stable Instructions (If sedation given, give patient instructions): Shingles (ED) Additional Instructions: You may take [id number] ibuprofen and Tylenol for pain control. Complete full course of acyclovir. Follow-up with PCP in the next 1 to 2 days. Return to the ER for any new or worsening concerns. Prescriptions: Ibuprofen 600 mg PO Q8H #30 tab Acyclovir [Zovirax] 800 mg PO TID 7 Days #21 tab Is patient prescribed a controlled substance at d/c from ED?: No Referrals: Oscar Pulliam MD [Primary Care Provider] - 1-2 days Time of Disposition: 10:59
[2024-02-23 11:16] VITALS: BP 143/105; PULSE 62; TEMP 98
== END 2024-02-23 11:18 | disposition home or self-care (01) ==
LOC: SUPCPDRO 09:47 → EC 09:47
DX: B02.9 Zoster without complications (principal)
CPT/HCPCS: 99283